=== PATIENT | female | born 1960 | race African-American/Black ===

== ENCOUNTER 2018-07-11 20:32 | Inpatient (IN) | payer MEDICAID, OTHER ==
[~2018-07-11] VITALS: Ht 167.6 cm; Wt 81.9 kg
[2018-07-11 20:59] LABS: BASOPHILS % (AUTO) 0.6 % (0.0-2.0); EOSINOPHILS % (AUTO) 2.5 % (0.0-6.0); HEMATOCRIT 40 % (33-45); HEMOGLOBIN 13.5 g/dL (11.5-14.8); LYMPHOCYTES # (AUTO) 1.9 /CMM (0.8-4.8); LYMPHOCYTES % (AUTO) 24.4 % (20.0-44.0); MEAN CORPUSCULAR HGB CONC 33 g/dl (31.0-36.0); MEAN CORPUSCULAR VOLUME 93 fL (82-100); MONOCYTES # (AUTO) 0.4 /CMM (0.1-1.30); MONOCYTES % (AUTO) 5.7 % (2.0-12.0); NEUTROPHILS # (AUTO) 5.1 /CMM (1.8-8.9); NEUTROPHILS % (AUTO) 66.8 % (43.0-81.0); PLATELET COUNT (AUTO) 190 /CMM (150-450); RED BLOOD CELL COUNT(AUTO) 4.35 MIL/uL (4.0-5.2); WHITE BLOOD COUNT (AUTO) 7.7 K/uL (4.3-11.0)
[2018-07-11 21:20] LABS: D-DIMER 0.19 mg/L(FEU (0.17-0.50)
[2018-07-11 21:22] LABS: B-TYPE NATRIURETIC PEPTIDE 17 PG/ML (0-125); CALCIUM, SERUM 8.9 mg/dL (8.5-10.1); CARBON DIOXIDE 31 mmol/L (21-32); CHLORIDE 100 mmol/L (98-107); CREATININE 0.9 mg/dL (0.6-1.3); GLUCOSE 288 mg/dL (74-106); POTASSIUM 3.9 mmol/L (3.5-5.1); SODIUM SERUM 137 mmol/L (136-145); UREA NITROGEN, BLOOD 13 mg/dL (7-18)
[2018-07-11] MEDS ORDERED: BENAZEPRIL (22:51)
[2018-07-12] VITALS (11 sets, daily range): BP systolic 125–159; BP diastolic 73–90
[2018-07-12] MEDS ORDERED: BENA1TAB17 PO (04:19)
[2018-07-12] MEDS ORDERED: MORPHINE SULFATE INJ 4 MG/ML DISP.SYRIN IV PRN (04:30)
[2018-07-12] MEDS ORDERED: NITROGLYCERIN 0.4 MG/TAB BOTTLE SL PRN (04:30)
[2018-07-12] MEDS: ASPIRIN 81 MG TAB.CHEW PO SCH (09:48)
[2018-07-12] MEDS: CARVEDILOL 6.25 MG TABLET PO SCH ×2 (09:48→21:00)
[2018-07-12] MEDS ORDERED: CT SWABBABLE VALVE TRANS SET 1 EA INFUS.SET MC ONE (13:29)
[2018-07-12] MEDS ORDERED: IV NS 0.9% 250 ML IV ONE (13:29)
[2018-07-12] MEDS ORDERED: IOHEXOL-350 100 ML VIAL IV ONE (13:29)
[2018-07-13] VITALS: BP 125/73
[2018-07-13] MEDS ORDERED: ACETAMINOPHEN 325 MG TABLET PO PRN (02:30)
[2018-07-13 04:00] VITALS: BP 148/80
[2018-07-13 08:00] VITALS: BP 154/91
[2018-07-13] MEDS: ASPIRIN 81 MG TAB.CHEW PO SCH (08:07)
[2018-07-13] MEDS: CARVEDILOL 6.25 MG TABLET PO SCH (08:08)
[2018-07-13 08:19] LABS: BASOPHILS % (AUTO) 0.4 % (0.0-2.0); EOSINOPHILS % (AUTO) 2.7 % (0.0-6.0); HEMATOCRIT 40 % (33-45); HEMOGLOBIN 13.3 g/dL (11.5-14.8); LYMPHOCYTES # (AUTO) 1.5 /CMM (0.8-4.8); LYMPHOCYTES % (AUTO) 21.3 % (20.0-44.0); MEAN CORPUSCULAR HGB CONC 34 g/dl (31.0-36.0); MEAN CORPUSCULAR VOLUME 93 fL (82-100); MONOCYTES # (AUTO) 0.5 /CMM (0.1-1.30); MONOCYTES % (AUTO) 6.9 % (2.0-12.0); NEUTROPHILS # (AUTO) 4.7 /CMM (1.8-8.9); NEUTROPHILS % (AUTO) 68.7 % (43.0-81.0); PLATELET COUNT (AUTO) 182 /CMM (150-450); RED BLOOD CELL COUNT(AUTO) 4.27 MIL/uL (4.0-5.2); WHITE BLOOD COUNT (AUTO) 6.9 K/uL (4.3-11.0)
[2018-07-13 08:33] LABS: CALCIUM, SERUM 8.8 mg/dL (8.5-10.1); CREATININE 0.8 mg/dL (0.6-1.3); MAGNESIUM 1.8 mg/dL (1.8-2.4); PHOSPHORUS 3.7 mg/dL (2.5-4.9); POTASSIUM 3.9 mmol/L (3.5-5.1)
[2018-07-13] MEDS ORDERED: METFORMIN 500 MG TABLET PO SCH (11:30)
[2018-07-13 12:00] VITALS: BP 140/73
[2018-07-13] MEDS ORDERED: METF-440 PO (12:33)
== END 2018-07-13 13:45 | disposition home or self-care (01) | DRG 203 ==
LOC: ER 20:36 → TELE 07-12 03:10
PROVIDERS: ADMIT Nurse Practitioner Acute Care; ATTEND Internal Medicine
DX: M94.0 Chondrocostal junction syndrome [Tietze] (principal); E11.9 Type 2 diabetes mellitus without complications; E66.9 Obesity, unspecified; I10 Essential (primary) hypertension; Z87.891 Personal history of nicotine dependence; F12.90 Cannabis use, unspecified, uncomplicated; F10.10 Alcohol abuse, uncomplicated; G90.50 Complex regional pain syndrome I, unspecified; Z68.29 Body mass index [BMI] 29.0-29.9, adult
CPT/HCPCS: 36415; 71045-TC; 75574; 80048-TC; 80061-TC; 83735-TC; 83880; 84100-TC; 84484-TC; 85025-TC; 85378-TC; 85730-TC; 87081-TC; 93307-TC; A6402; G0378; J7050; Q9967

== ENCOUNTER 2019-07-20 15:49 | Emergency (ER) | payer MEDICAID ==
[~2019-07-20] VITALS: Ht 170.2 cm; Wt 81.6 kg
[~2019-07-20 15:49] MED LIST: BENA1TAB17 PO; BENAZEPRIL; METF-440 PO
--- NOTE | 2019-07-20 16:18 | NUR ---
PT AAOX4. AMBULATORY. C/O L SIDED HEADACHE s/p fell + syncopal episode x Jul 05, 2019. PT was seen at [facility] and was told she has bronchitis. Was given an inhaler. VSS. No acute distress noted. Awaiting MD for eval.
[2019-07-20 16:40] LABS: BASOPHILS # (AUTO) 0.1 /CMM (0.0-0.2); BASOPHILS % (AUTO) 0.8 % (0.0-2.0); EOSINOPHILS % (AUTO) 0.8 % (0.0-6.0); HEMATOCRIT 42 % (33-45); LYMPHOCYTES # (AUTO) 1.8 /CMM (0.8-4.8); LYMPHOCYTES % (AUTO) 21.2 % (20.0-44.0); MEAN CORPUSCULAR HGB CONC 33 g/dl (31.0-36.0); MEAN CORPUSCULAR VOLUME 92 fL (82-100); MONOCYTES # (AUTO) 0.5 /CMM (0.1-1.30); NEUTROPHILS # (AUTO) 5.9 /CMM (1.8-8.9); NEUTROPHILS % (AUTO) 71.2 % (43.0-81.0); PLATELET COUNT (AUTO) 291 /CMM (150-450); RED BLOOD CELL COUNT(AUTO) 4.57 MIL/uL (4.0-5.2); WHITE BLOOD COUNT (AUTO) 8.3 K/uL (4.3-11.0)
--- NOTE | 2019-07-20 16:53 | NUR ---
PT BACK FROM CT
[2019-07-20 17:34] LABS: CALCIUM, SERUM 9.6 mg/dL (8.5-10.1); CARBON DIOXIDE 29 mmol/L (21-32); CHLORIDE 98 mmol/L (98-107); CREATININE 1.1 mg/dL (0.6-1.3); GLUCOSE 333 mg/dL (74-106); SODIUM SERUM 138 mmol/L (136-145); UREA NITROGEN, BLOOD 16 mg/dL (7-18)
[2019-07-20 17:39] LABS: ALANINE AMINOTRANSFERASE 38 U/L (12-78); ALBUMIN 3.8 g/dL (3.4-5.0); ALKALINE PHOSPHATASE 77 U/L (46-116); ASPARTATE AMINOTRANSFERASE 22 U/L (15-37); BILIRUBIN,DIRECT 0.1 mg/dL (0.0-0.2); BILIRUBIN,TOTAL 0.4 mg/dL (0.2-1.0); TOTAL PROTEIN, SERUM 8.1 g/dL (6.4-8.2)
[2019-07-20] MEDS ORDERED: KETOROLAC TROMETHAMINE 15 MG/ML VIAL ONE (17:43)
[2019-07-20] MEDS ORDERED: METOCLOPRAMIDE HCL 10 MG/2 ML VIAL ONE (17:43)
[2019-07-20] MEDS ORDERED: KETOROLAC TROMETHAMINE INJ 30 MG/ML VIAL IV ONE (18:00)
[2019-07-20] MEDS ORDERED: METOCLOPRAMIDE HCL 10 MG/2 ML VIAL IV ONE (18:00)
[2019-07-20 18:40] VITALS: BP 128/74
--- NOTE | 2019-07-20 19:09 | NUR ---
Patient discharged to home in stable condition. Written and verbal after care instructions given. Patient verbalizes understanding of instruction and RX. IV removed. Catheter intact and site benign. Pressure and 4x4 applied to site. No bleeding noted. PT ambulatory with a steady gait.
== END 2019-07-20 19:21 | disposition home or self-care (01) ==
LOC: ER 15:49
DX: S06.0X0A Concussion without loss of consciousness, initial encounter (principal); R55 Syncope and collapse; I10 Essential (primary) hypertension; Z90.89 Acquired absence of other organs; Z98.890 Other specified postprocedural states; Z79.899 Other long term (current) drug therapy; Z91.018 Allergy to other foods; W18.39XA Other fall on same level, initial encounter; Y93.89 Activity, other specified; Y92.89 Other specified places as the place of occurrence of the external cause; Y99.8 Other external cause status
CPT/HCPCS: 36415; 70450; 71045; 80048; 80076; 84484; 85025; 93005 ×2; 96374; 96375; 99284; J1885; J2765

== ENCOUNTER 2020-10-26 10:44 | Emergency (ER) | payer MEDICAID ==
[~2020-10-26] VITALS: Ht 172.7 cm; Wt 77.6 kg
--- NOTE | 2020-10-26 11:00 | NUR ---
c/o bilateral leg pain concern about blood clot, got covid 19 shot 10/12/20 jb and jb vaccine, 8/10 pain scale. PT AAOX4, VSS. RR EVEN & UNLABORED. DENIES CP, SOB, DIZZINESS AT THIS TIME. PT SEEN & EVAL'D BY DR. SYKES. WILL CONT TO MONITOR.
--- NOTE | 2020-10-26 12:07 | NUR ---
PUBLIC SERVICES ASSISTANT AT FOR EVAL.
--- NOTE | 2020-10-26 12:18 | NUR ---
Patient discharged to home in stable condition. Written and verbal after care instructions given. Patient verbalizes understanding of instruction.
[2020-10-26 12:19] VITALS: BP 124/82
== END 2020-10-26 12:19 | disposition home or self-care (01) ==
LOC: ER 10:46
DX: M79.604 Pain in right leg (principal); M79.605 Pain in left leg; E11.9 Type 2 diabetes mellitus without complications; I10 Essential (primary) hypertension; Z90.89 Acquired absence of other organs; Z98.890 Other specified postprocedural states; Z91.018 Allergy to other foods; Z79.84 Long term (current) use of oral hypoglycemic drugs; Z79.899 Other long term (current) drug therapy
CPT/HCPCS: 93970-TC

== ENCOUNTER 2023-04-16 12:35 | Emergency (ER) | payer MEDICAID ==
[~2023-04-16] VITALS: Ht 170.2 cm; Wt 76.2 kg
[2023-04-16] MEDS ORDERED: HYDROCODONE/APAP 5/325MG TABLET ONE (13:14)
[2023-04-16] MEDS ORDERED: VALA100026 PO (13:26)
[2023-04-16] MEDS ORDERED: HYDR-4303 PO (13:26)
[2023-04-16] MEDS ORDERED: HYDROCODONE/APAP 5/325MG TABLET PO ONE (13:30)
[2023-04-16 13:50] VITALS: BP 122/74; TEMP 98.1; O2SAT 98
== END 2023-04-16 13:50 | disposition home or self-care (01) ==
LOC: ER 12:42
DX: B02.9 Zoster without complications (principal); I10 Essential (primary) hypertension; Z90.49 Acquired absence of other specified parts of digestive tract; Z79.899 Other long term (current) drug therapy; Z88.1 Allergy status to other antibiotic agents

== ENCOUNTER 2023-09-04 10:45 | Emergency (ER) | payer MEDICAID, OTHER ==
[~2023-09-04] VITALS: Ht 170.2 cm; Wt 74.8 kg
[~2023-09-04 10:45] MED LIST changes: +HYDR-4303 PO; +VALA100026 PO
[2023-09-04 12:03] LABS: BASOPHILS % (AUTO) 0.4 % (0.0-2.0); EOSINOPHILS # (AUTO) 0.1 K/uL (0.0-0.7); HEMATOCRIT 35 % (33-45); HEMOGLOBIN 11.8 g/dL (11.5-14.8); LYMPHOCYTES # (AUTO) 1.4 K/uL (0.8-4.8); MEAN CORPUSCULAR HEMOGLOBIN 30 PG (26.0-33.0); MEAN CORPUSCULAR HGB CONC 34 g/dl (31.0-36.0); MEAN CORPUSCULAR VOLUME 90 fL (82-100); MONOCYTES # (AUTO) 0.5 K/uL (0.1-1.30); MONOCYTES % (AUTO) 5.6 % (2.0-12.0); NEUTROPHILS # (AUTO) 6.2 K/uL (1.8-8.9); PLATELET COUNT (AUTO) 218 K/uL (150-450); RED BLOOD CELL COUNT(AUTO) 3.89 MIL/uL (4.0-5.2); RED CELL DISTRIBUTION WIDTH 13.1 % (11.5-15.0); WHITE BLOOD COUNT (AUTO) 8.2 K/uL (4.3-11.0)
[2023-09-04 12:41] LABS: CALCIUM, SERUM 9.7 mg/dL (8.5-10.1); CARBON DIOXIDE 31 mmol/L (21-32); CHLORIDE 101 mmol/L (98-107); CREATININE 0.7 mg/dL (0.6-1.3); GLUCOSE 245 mg/dL (74-106); POTASSIUM 3.8 mmol/L (3.5-5.1); SODIUM SERUM 140 mmol/L (136-145); UREA NITROGEN, BLOOD 12 mg/dL (7-18)
[2023-09-04 12:53] LABS: NT-PRO BNP 196 pg/mL (0-125)
[2023-09-04] MEDS ORDERED: DICL100G34 TP (13:40)
[2023-09-04] MEDS ORDERED: METF-440 PO (13:40)
[2023-09-04] MEDS ORDERED: OXYC-133 PO (13:40)
[2023-09-04] MEDS ORDERED: CHOL50002 PO (13:40)
[2023-09-04] MEDS ORDERED: GABA300C PO (13:40)
[2023-09-04 16:24] VITALS: BP 139/85; TEMP 98.1; O2SAT 94
== END 2023-09-04 16:24 | disposition left against medical advice (07) ==
LOC: ER 10:45 → TELE 15:54 → UNDOADMIN 15:54
DX: R07.9 Chest pain, unspecified (principal); I10 Essential (primary) hypertension; E11.9 Type 2 diabetes mellitus without complications; Z91.018 Allergy to other foods; Z79.84 Long term (current) use of oral hypoglycemic drugs; Z79.899 Other long term (current) drug therapy
CPT/HCPCS: 36415; 71045-TC; 80048-TC; 83880; 84484-TC; 85025-TC

== ENCOUNTER 2023-09-09 13:01 | Inpatient (IN) | payer OTHER ==
[~2023-09-09] VITALS: Ht 170.2 cm; Wt 74.8 kg
[~2023-09-09 13:01] MED LIST changes: -BENAZEPRIL; +CHOL50002 PO; +DICL100G34 TP; +GABA300C PO; -HYDR-4303 PO; +OXYC-133 PO; -VALA100026 PO
[2023-09-09 13:45] LABS: BASOPHILS # (AUTO) 0.1 K/uL (0.0-0.2); BASOPHILS % (AUTO) 0.6 % (0.0-2.0); EOSINOPHILS # (AUTO) 0.1 K/uL (0.0-0.7); EOSINOPHILS % (AUTO) 0.8 % (0.0-6.0); HEMATOCRIT 39 % (33-45); HEMOGLOBIN 12.6 g/dL (11.5-14.8); LYMPHOCYTES # (AUTO) 1.8 K/uL (0.8-4.8); LYMPHOCYTES % (AUTO) 20.4 % (20.0-44.0); MEAN CORPUSCULAR HEMOGLOBIN 30 PG (26.0-33.0); MEAN CORPUSCULAR HGB CONC 33 g/dl (31.0-36.0); MEAN CORPUSCULAR VOLUME 90 fL (82-100); MONOCYTES # (AUTO) 0.5 K/uL (0.1-1.30); MONOCYTES % (AUTO) 6.1 % (2.0-12.0); NEUTROPHILS # (AUTO) 6.3 K/uL (1.8-8.9); NEUTROPHILS % (AUTO) 72.1 % (43.0-81.0); PLATELET COUNT (AUTO) 225 K/uL (150-450); RED BLOOD CELL COUNT(AUTO) 4.27 MIL/uL (4.0-5.2); RED CELL DISTRIBUTION WIDTH 13.2 % (11.5-15.0); WHITE BLOOD COUNT (AUTO) 8.8 K/uL (4.3-11.0)
[2023-09-09 13:55] LABS: CALCIUM, SERUM 9.5 mg/dL (8.5-10.1); CARBON DIOXIDE 25 mmol/L (21-32); CHLORIDE 100 mmol/L (98-107); CREATININE 0.9 mg/dL (0.6-1.3); GLUCOSE 202 mg/dL (74-106); POTASSIUM 3.8 mmol/L (3.5-5.1); SODIUM SERUM 134 mmol/L (136-145); UREA NITROGEN, BLOOD 17 mg/dL (7-18)
[2023-09-09] MEDS: ASPIRIN 81 MG TAB.CHEW PO ONE (16:20)
[2023-09-09] MEDS ORDERED: ASPIRIN 325 MG TABLET ONE (16:21)
[2023-09-09] MEDS ORDERED: DEXTROSE 50%-WATER 50 ML DISP.SYRIN IV PRN (17:00)
[2023-09-09] MEDS ORDERED: *INSULIN REGULAR(HUMULIN R)HUM 100 UNIT/ML VIAL SQ PRN (17:00)
[2023-09-09] MEDS ORDERED: ZOLPIDEM TARTRATE 5 MG TABLET PO PRN (17:00)
[2023-09-09] MEDS ORDERED: ACETAMINOPHEN 325 MG TABLET PO PRN (17:00)
[2023-09-09] MEDS: BLOOD SUGAR DIAGNOSTIC 1 EACH STRIP VI SCH (17:32)
[2023-09-09] MEDS: GABAPENTIN 300 MG CAPSULE PO SCH (17:32)
[2023-09-09] MEDS: INSULIN REGULAR, HUMAN 100 UNIT/ML 3 ML VIAL SQ PRN (18:04)
[2023-09-09 20:00] VITALS: BP 112/76; TEMP 98; O2SAT 95
[2023-09-09] MEDS: ENOXAPARIN SODIUM 40 MG/0.4 ML DISP.SYRIN SQ SCH (21:28)
[2023-09-09] MEDS: HYDROCODONE/APAP 5/325MG TABLET PO PRN (21:34)
[2023-09-10] VITALS: BP 110/78; TEMP 98; O2SAT 96
[2023-09-10 04:25] VITALS: BP 111/82; TEMP 97.4; O2SAT 98
[2023-09-10 06:41] LABS: BASOPHILS % (AUTO) 0.3 % (0.0-2.0); EOSINOPHILS # (AUTO) 0.1 K/uL (0.0-0.7); EOSINOPHILS % (AUTO) 1.3 % (0.0-6.0); HEMATOCRIT 34 % (33-45); HEMOGLOBIN 11.3 g/dL (11.5-14.8); LYMPHOCYTES # (AUTO) 1.6 K/uL (0.8-4.8); MEAN CORPUSCULAR HEMOGLOBIN 30 PG (26.0-33.0); MEAN CORPUSCULAR HGB CONC 34 g/dl (31.0-36.0); MEAN CORPUSCULAR VOLUME 90 fL (82-100); MONOCYTES # (AUTO) 0.4 K/uL (0.1-1.30); MONOCYTES % (AUTO) 6.3 % (2.0-12.0); NEUTROPHILS # (AUTO) 4.4 K/uL (1.8-8.9); NEUTROPHILS % (AUTO) 68.1 % (43.0-81.0); PLATELET COUNT (AUTO) 211 K/uL (150-450); RED BLOOD CELL COUNT(AUTO) 3.76 MIL/uL (4.0-5.2); RED CELL DISTRIBUTION WIDTH 13.1 % (11.5-15.0); WHITE BLOOD COUNT (AUTO) 6.5 K/uL (4.3-11.0)
[2023-09-10 06:57] LABS: CALCIUM, SERUM 9.5 mg/dL (8.5-10.1); CARBON DIOXIDE 27 mmol/L (21-32); CHLORIDE 104 mmol/L (98-107); CREATININE 0.7 mg/dL (0.6-1.3); GLUCOSE 165 mg/dL (74-106); POTASSIUM 3.8 mmol/L (3.5-5.1); SODIUM SERUM 140 mmol/L (136-145); UREA NITROGEN, BLOOD 13 mg/dL (7-18)
[2023-09-10 07:08] LABS: CHOLESTEROL 190 mg/dL (<200); HDL CHOLESTEROL 65 mg/dL (40-60); LDL 101 mg/dL (0-99); TRIGLYCERIDES 66 mg/dL (30-150)
[2023-09-10 08:00] VITALS: BP 113/69; TEMP 97.7; O2SAT 97
[2023-09-10] MEDS: ASPIRIN EC 81 MG TABLET.DR PO SCH (09:00)
[2023-09-10] MEDS: BENAZEPRIL HCL 10 MG TABLET PO SCH (09:08)
[2023-09-10] MEDS ORDERED: IOHEXOL-350 100 ML VIAL IV ONE (11:29)
[2023-09-10] MEDS ORDERED: IV NS 0.9% 250 ML IV ONE (11:29)
[2023-09-10] MEDS ORDERED: CT SWABBABLE VALVE TRANS SET 1 EA INFUS.SET MC ONE (11:29)
[2023-09-10] MEDS: NITROGLYCERIN 0.4 MG/TAB BOTTLE SL ONE (11:55)
[2023-09-10 12:00] VITALS: BP 123/68; TEMP 98.5; O2SAT 100
[2023-09-10] MEDS ORDERED: METOPROLOL TARTRATE INJ 5 MG/5 ML AMPUL IVP PRN (12:00)
[2023-09-10 16:00] VITALS: BP 110/61; TEMP 98.1; O2SAT 99
[2023-09-10 20:00] VITALS: BP 120/65; TEMP 98.5; O2SAT 99
== END 2023-09-10 20:15 | disposition home or self-care (01) | DRG 203 ==
LOC: ER 13:13 → TELE1 16:13
PROVIDERS: ADMIT Internal Medicine; ATTEND Internal Medicine
DX: M94.0 Chondrocostal junction syndrome [Tietze] (principal); B02.9 Zoster without complications; E11.9 Type 2 diabetes mellitus without complications; I10 Essential (primary) hypertension; E78.5 Hyperlipidemia, unspecified; I25.110 Atherosclerotic heart disease of native coronary artery with unstable angina pectoris; Z79.84 Long term (current) use of oral hypoglycemic drugs; Z87.891 Personal history of nicotine dependence; Z82.49 Family history of ischemic heart disease and other diseases of the circulatory system; Z82.3 Family history of stroke
CPT/HCPCS: 36415; 71045-TC; 75574; 80048-TC; 80061-TC; 82962-TC; 84443-TC; 84484-TC; 85025-TC; 93307-TC; 97112-TC; 97116-TC; 97530-TC; G0378; J1650; J1815; J7050; Q9967